=== PATIENT | male | born 1980 | race Caucasian/White ===

== ENCOUNTER 2021-09-14 13:30 | Emergency (ER) | payer BC, MEDICAID, SELFPAY ==
[2021-09-14 13:33] VITALS: BP 126/94; PULSE 98; RESP 15; TEMP 36.9; O2SAT 98; BMI 23.3
--- NOTE | 2021-09-14 14:20 | RAD_ITS ---
STUDY: X-RAY - UNILATERAL RIBS ( RIGHT ) WITH CHEST REASON FOR EXAM: Male, 41 years old. Injury TECHNIQUE - RIBS: 4 view(s) of the ribs. TECHNIQUE - CHEST: Single frontal view of the chest. COMPARISON: None. FINDINGS - RIBS: Normal visualized ribs without a demonstrated fracture. FINDINGS - CHEST: The lungs are clear and expanded. There is no demonstrated pleural abnormality. Normal size heart. Normal mediastinum and trae. Normal visualized pulmonary arteries. Normal visualized aortic arch and descending thoracic aorta. Normal visualized thoracic spine. There is a mid left clavicular fracture. There is no demonstrated abnormality of the visualized soft tissue structures of the upper abdomen. RAD/Ribs Uni Min 3V w/PA Chest IMPRESSION: RIBS: Normal x-ray examination of the ribs. CHEST: Left clavicular fracture. Electronically Signed: Saranya Noriega MD at 15:03 EDT ,
--- NOTE | 2021-09-14 14:20 | RAD_ITS ---
STUDY: X-RAY - LEFT SHOULDER REASON FOR EXAM: Male, 41 years old. Injury TECHNIQUE: 4 view(s) of the shoulder. COMPARISON: None. FINDINGS: Normal glenohumeral articulation. Normal acromioclavicular joint. Normal acromion. Normal humeral head and visualized proximal humerus. There is a mid clavicular fracture. There is inferior and medial displacement of the distal clavicle. The soft tissue structures are unremarkable. Normal visualized pulmonary apex. RAD/Shoulder min 2 Views IMPRESSION: Clavicular fracture. Electronically Signed: Saranya Noriega MD at 15:03 EDT ,
--- NOTE | 2021-09-14 14:20 | RAD_ITS ---
STUDY: X-RAY - LEFT CLAVICLE REASON FOR EXAM: Male, 41 years old. Injury TECHNIQUE: 2 view(s) of the clavicle. COMPARISON: None. FINDINGS: There is a fracture within the mid clavicle. There is caudal and medial displacement of the distal clavicle. Normal acromioclavicular articulation. Normal visualized sternoclavicular articulation. Normal visualized pulmonary apex. RAD/Clavicle IMPRESSION: Mid clavicular fracture. Electronically Signed: Saranya Noriega MD at 15:01 EDT ,
--- NOTE | 2021-09-14 14:47 | ED.RN ---
The patient announced to this nurse that he was going far away to smoke and would be back in. This nurse attempted to educate on the smoking policy of the hospital and the importance to stay in his room while an ED patient. Patient proceeded to walk out of the ED doors.
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
== END 2021-09-14 15:26 | disposition home or self-care (01) ==
PROVIDERS: Emergency Provider Emergency Medicine; Visit Provider Emergency Medicine
DX: S42.002A Fracture of unspecified part of left clavicle, initial encounter for closed fracture (principal); F17.210 Nicotine dependence, cigarettes, uncomplicated; W19.XXXA Unspecified fall, initial encounter
CPT/HCPCS: 71101; 73000; 73030; 99282